=== PATIENT | female | born 1940 | race Caucasian/White ===

== ENCOUNTER 2016-12-10 19:06 | Inpatient (IN) | payer OTHER, MEDICARE, BC ==
[~2016-12-10] VITALS: Ht 154.9 cm; Wt 74.0 kg
[2016-12-10 19:16] VITALS: BP 134/63; PULSE 92; RESP 18; TEMP 98.3; O2SAT 97
[2016-12-10 19:32] VITALS: BP 134/63; PULSE 83; RESP 19; O2SAT 96
[2016-12-10] MEDS ORDERED: PROG1CAP20 PO (19:34)
[2016-12-10] MEDS ORDERED: PROG100C PO (19:34)
[2016-12-10] MEDS ORDERED: ESTR0.5T PO (19:34)
[2016-12-10] MEDS ORDERED: DICL1CAP3 PO (19:35)
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
[2016-12-10] MEDS ORDERED: MISCELLANEOUS NURSING INFORMATION XX SCH (20:30)
[2016-12-10] MEDS ORDERED: CHLORHEXIDINE GLUCONATE 2 % 1 PACK (2 CLOTHS) TOP PRN (20:30)
[2016-12-10] MEDS ORDERED: SODIUM CHLORIDE 0.9% FLUSH 10 ML FLUSH IV FLUSH PRN (20:30)
[2016-12-10] MEDS ORDERED: MAGNESIUM HYDROXIDE SUSP 30 ML CUP PO PRN (20:30)
[2016-12-10] MEDS ORDERED: ENALAPRILAT 1.25 MG/ML VIAL IV PRN (21:00)
[2016-12-10] MEDS: DOCUSATE SODIUM 100 MG CAP PO SCH ×2 (21:00→21:21)
[2016-12-10] MEDS ORDERED: ACETAMINOPHEN/HYDROcodone 325 MG/5 MG TAB PO PRN (21:00)
[2016-12-10] MEDS: SODIUM CHLOR 0.9% 1000 ML INJ 1,000 ML IV SCH (21:20)
[2016-12-10] MEDS: PANTOPRAZOLE SODIUM 40 MG VIAL IVP SCH (21:21)
[2016-12-10] MEDS: ACETAMINOPHEN/HYDROcodone 325 MG/5 MG TAB PO PRN (21:22)
[2016-12-10 21:41] LABS: AUTOMATED NEUTROPHIL # 9.3 TH/MM3 (1.8-7.7); BASOPHIL % 0.2 % (0.0-2.0); EOSINOPHIL % 0.1 % (0.0-4.0); HEMATOCRIT 32.1 % (35.0-46.0); HEMO FLAGS DIFF FINAL; LYMPH % 6.9 % (9.0-44.0); LYMPHOCYTE # 0.7 TH/MM3 (1.0-4.8); MEAN CELL VOLUME 85.1 FL (80.0-100.0); MEAN CORPUSCULAR HEMOGLOBIN 28.8 PG (27.0-34.0); MEAN CORPUSCULAR HGB CONC 33.9 % (32.0-36.0); MONO % 4.9 % (0.0-8.0); NEUT % 87.9 % (16.0-70.0); PLATELET COUNT 230 TH/MM3 (150-450); RED BLOOD COUNT 3.78 MIL/MM3 (4.00-5.30); RED CELL DISTRIBUTION WIDTH 14.3 % (11.6-17.2); WHITE BLOOD COUNT 10.6 TH/MM3 (4.0-11.0)
[2016-12-10 21:45] VITALS: BP 156/70; PULSE 88; RESP 20; TEMP 98.3; O2SAT 100
[2016-12-10 22:00] VITALS: PULSE 86
[2016-12-10 23:10] VITALS: O2SAT 97
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
[2016-12-11] VITALS (10 sets, daily range): BP systolic 113–139; BP diastolic 58–63; PULSE 77–92; RESP 12–20; TEMP 97.2–98.8; O2SAT 94–100
[2016-12-11] MEDS: ACETAMINOPHEN/HYDROcodone 325 MG/5 MG TAB PO PRN ×6 (02:12→23:10)
[2016-12-11] MEDS: CHLORHEXIDINE GLUCONATE 2 % 1 PACK (2 CLOTHS) TOP SCH (03:28)
[2016-12-11 04:32] LABS: BASOPHIL % 0.4 % (0.0-2.0); EOSINOPHIL % 0.5 % (0.0-4.0); HEMATOCRIT 30.3 % (35.0-46.0); HEMO FLAGS DIFF FINAL; LYMPH % 16.5 % (9.0-44.0); LYMPHOCYTE # 1.1 TH/MM3 (1.0-4.8); MEAN CELL VOLUME 85.6 FL (80.0-100.0); MEAN CORPUSCULAR HGB CONC 32.7 % (32.0-36.0); MONO % 8.5 % (0.0-8.0); NEUT % 74.1 % (16.0-70.0); PLATELET COUNT 211 TH/MM3 (150-450); RED BLOOD COUNT 3.54 MIL/MM3 (4.00-5.30); RED CELL DISTRIBUTION WIDTH 14.2 % (11.6-17.2); WHITE BLOOD COUNT 6.8 TH/MM3 (4.0-11.0)
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
[2016-12-11 05:17] LABS: BICARBONATE 23.9 MEQ/L (21.0-32.0); CALCIUM-PROTEIN CORRECTED 8.4 MG/DL (8.5-10.1); POTASSIUM 3.9 MEQ/L (3.5-5.1); TOTAL BILIRUBIN ADULT 0.7 MG/DL (0.2-1.0)
--- NOTE | 2016-12-11 05:56 | RADRPT ---
EXAM DATE/TIME: 12/11/2016 04:22 [facility] COMPARISON: No previous studies available for comparison. INDICATIONS : Pelvic pain. MEDICAL HISTORY : None. SURGICAL HISTORY : None. ENCOUNTER: Initial ACUITY: 1 day PAIN SCORE: Non-responsive. LOCATION: Bilateral pelvis FINDINGS: A single frontal view of the pelvis demonstrates no evidence of fracture. The bony pelvic ring is in tact. Bony mineralization is normal. The soft tissues are intact. There are degenerative changes in volving the lower lumbar spine. There is good alignment SI joints pubic symphysis. Mild degenerative changes of both hip joints. CONCLUSION: 1. No acute fracture or joint dislocation 2. Primary degenerative changes of the lower lumbar spine and pelvis. Randall Suarez MD on December 11, 2016 at 5:53 Board Certified Radiologist. This report was verified electronically.
--- NOTE | 2016-12-11 06:02 | RADRPT ---
EXAM DATE/TIME: 12/11/2016 04:20 [facility] COMPARISON: No previous studies available for comparison. INDICATIONS : Shortness of breath. MEDICAL HISTORY : Myocardial infarction. SURGICAL HISTORY : None. ENCOUNTER: Initial ACUITY: 1 day PAIN SCORE: Non-responsive. LOCATION: Bilateral chest FINDINGS: A single view of the chest demonstrates patchy infiltrates in both lung bases suggestive of atelectas is. The upper lung johnson are grossly clear.. The cardiomediastinal contours are unremarkable. Osse ous structures are intact. CONCLUSION: Patchy bibasilar infiltrates. Randall Suarez MD on December 11, 2016 at 5:59 Board Certified Radiologist. This report was verified electronically.
[2016-12-11] MEDS: SODIUM CHLOR 0.9% 1000 ML INJ 1,000 ML IV SCH ×2 (07:00→17:20)
[2016-12-11] MEDS ORDERED: REMOVE OLD LIDOCAINE PATCH T-DERMAL SCH (07:45)
[2016-12-11] MEDS: DOCUSATE SODIUM 50 MG/SENNA 8.6 MG TAB PO SCH ×2 (08:09→19:33)
[2016-12-11] MEDS: POLYETHYLENE GLYCOL 17 GM PKG PO SCH (08:09)
[2016-12-11] MEDS: METHOCARBAMOL 500 MG TAB PO SCH ×3 (09:14→22:00)
[2016-12-11] MEDS: ACETAMINOPHEN 1000 MG/100 ML VIAL IV SCH ×3 (09:14→19:38)
[2016-12-11] MEDS: LIDOCAINE HCL 5% PATCH T-DERMAL SCH (11:18)
[2016-12-11] MEDS: PANTOPRAZOLE SODIUM 40 MG VIAL IVP SCH (19:28)
[2016-12-11] MEDS: LACTULOSE SYRUP 20 GM/30 ML CUP PO SCH (19:34)
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
[2016-12-11] MEDS: REMOVE OLD LIDOCAINE PATCH T-DERMAL SCH (21:00)
[2016-12-11] MEDS: ONDANSETRON HCL 4 MG/2 ML VIAL IV PRN (23:14)
[2016-12-12] VITALS (8 sets, daily range): BP systolic 129–176; BP diastolic 70–86; PULSE 80–105; RESP 18–20; TEMP 96.7–100; O2SAT 91–99
[2016-12-12] MEDS: CHLORHEXIDINE GLUCONATE 2 % 1 PACK (2 CLOTHS) TOP SCH (03:49)
[2016-12-12] MEDS: SODIUM CHLOR 0.9% 1000 ML INJ 1,000 ML IV SCH ×3 (03:49→21:54)
[2016-12-12] MEDS: ACETAMINOPHEN 1000 MG/100 ML VIAL IV SCH (03:49)
[2016-12-12] MEDS: METHOCARBAMOL 500 MG TAB PO SCH ×3 (05:55→21:50)
[2016-12-12] MEDS: DOCUSATE SODIUM 50 MG/SENNA 8.6 MG TAB PO SCH ×2 (09:05→21:51)
[2016-12-12] MEDS: POLYETHYLENE GLYCOL 17 GM PKG PO SCH (09:06)
[2016-12-12] MEDS: LIDOCAINE HCL 5% PATCH T-DERMAL SCH (09:09)
[2016-12-12] MEDS: LACTULOSE SYRUP 20 GM/30 ML CUP PO SCH (09:09)
[2016-12-12 10:02] LABS: AUTOMATED NEUTROPHIL # 5.8 TH/MM3 (1.8-7.7); BASOPHIL # 0.1 TH/MM3 (0-0.2); BASOPHIL % 0.7 % (0.0-2.0); EOSINOPHIL % 0.2 % (0.0-4.0); HEMO FLAGS DIFF FINAL; LYMPHOCYTE # 0.9 TH/MM3 (1.0-4.8); MEAN CELL VOLUME 87.3 FL (80.0-100.0); MEAN CORPUSCULAR HEMOGLOBIN 27.9 PG (27.0-34.0); NEUT % 81.1 % (16.0-70.0); PLATELET COUNT 197 TH/MM3 (150-450); RED BLOOD COUNT 3.56 MIL/MM3 (4.00-5.30); RED CELL DISTRIBUTION WIDTH 14.4 % (11.6-17.2); WHITE BLOOD COUNT 7.2 TH/MM3 (4.0-11.0)
[2016-12-12 10:38] LABS: ALKALINE PHOSPHATASE 40 U/L (45-117); ALT (GPT) 39 U/L (10-53); ANION GAP 8 MEQ/L (5-15); AST (GOT) 67 U/L (15-37); BICARBONATE 20.9 MEQ/L (21.0-32.0); BLOOD UREA NITROGEN 11 MG/DL (7-18); CHLORIDE 111 MEQ/L (98-107); GLOMERULAR FILTRATION RATE 109 ML/MIN (>89); POTASSIUM 4.1 MEQ/L (3.5-5.1); SODIUM (NA) 140 MEQ/L (136-145); TOTAL BILIRUBIN ADULT 0.4 MG/DL (0.2-1.0)
[2016-12-12] MEDS ORDERED: IOHEXOL 350 MG/ML 10 ML VIAL (for RAD DIAG) IV ONE (10:42)
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
[2016-12-12] MEDS: ONDANSETRON HCL 4 MG/2 ML VIAL IV PRN (13:01)
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
[2016-12-12] MEDS: ACETAMINOPHEN/HYDROcodone 325 MG/5 MG TAB PO PRN ×2 (13:46→18:46)
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
[2016-12-12] MEDS ORDERED: MELATONIN 5 MG TAB PO PRN (16:00)
[2016-12-12] MEDS ORDERED: ACETAMINOPHEN 650 MG/20.3 ML UDC PO PRN (16:00)
[2016-12-12] MEDS ORDERED: ACETAMINOPHEN 1000 MG/100 ML VIAL IV PRN (16:00)
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
[2016-12-12] MEDS: REMOVE OLD LIDOCAINE PATCH T-DERMAL SCH (21:00)
[2016-12-12] MEDS: FAMOTIDINE 20 MG TAB PO SCH (21:50)
[2016-12-13] VITALS (7 sets, daily range): BP systolic 105–170; BP diastolic 52–87; PULSE 95–101; RESP 18–20; TEMP 96.6–98.5; O2SAT 90–96
[2016-12-13] MEDS: CHLORHEXIDINE GLUCONATE 2 % 1 PACK (2 CLOTHS) TOP SCH (03:55)
[2016-12-13] MEDS: METHOCARBAMOL 500 MG TAB PO SCH ×3 (05:10→20:44)
[2016-12-13 07:13] LABS: MEAN CORPUSCULAR HEMOGLOBIN 28.1 PG (27.0-34.0); MEAN CORPUSCULAR HGB CONC 32.6 % (32.0-36.0); PLATELET COUNT 232 TH/MM3 (150-450); RED BLOOD COUNT 3.48 MIL/MM3 (4.00-5.30); RED CELL DISTRIBUTION WIDTH 14.3 % (11.6-17.2); REVIEW FLAG FINAL; WHITE BLOOD COUNT 8.4 TH/MM3 (4.0-11.0)
[2016-12-13 07:50] LABS: BICARBONATE 19.2 MEQ/L (21.0-32.0); POTASSIUM 3.6 MEQ/L (3.5-5.1)
[2016-12-13] MEDS: MORPHINE SULFATE 4 MG/ML INJ IV PRN ×2 (08:25→17:57)
[2016-12-13] MEDS: DOCUSATE SODIUM 50 MG/SENNA 8.6 MG TAB PO SCH ×2 (08:27→20:44)
[2016-12-13] MEDS: POLYETHYLENE GLYCOL 17 GM PKG PO SCH (08:27)
[2016-12-13] MEDS: LACTULOSE SYRUP 20 GM/30 ML CUP PO SCH (08:27)
[2016-12-13] MEDS: LIDOCAINE HCL 5% PATCH T-DERMAL SCH (08:28)
[2016-12-13] MEDS: SODIUM CHLOR 0.9% 1000 ML INJ 1,000 ML IV SCH (08:28)
[2016-12-13] MEDS: FAMOTIDINE 20 MG TAB PO SCH ×2 (08:28→20:44)
[2016-12-13] MEDS: ACETAMINOPHEN/HYDROcodone 325 MG/5 MG TAB PO PRN ×4 (09:44→22:59)
[2016-12-13] MEDS ORDERED: ESTR1TAB PO (11:37)
--- NOTE | 2016-12-13 13:15 | HHI.PR ---
Subjective Subjective Notes OOB to chair today Patient requesting to keep Land catheter one more day + BM Objective Vitals/I&O Vital Signs Date Time Temp Pulse Resp B/P Pulse Ox O2 Delivery O2 Flow Rate FiO2 12/13/16 08:00 98.5 101 20 170/79 90 12/12/16 20:00 Nasal Cannula 2.00 12/11/16 19:00 21 Labs Laboratory Tests Test 12/13/16 06:25 White Blood Count 8.4 Red Blood Count 3.48 Hemoglobin 9.8 Hematocrit 30.0 Mean Corpuscular Volume 86.0 Mean Corpuscular Hemoglobin 28.1 Mean Corpuscular Hemoglobin 32.6 Concent Red Cell Distribution Width 14.3 Platelet Count 232 Mean Platelet Volume 9.1 Sodium Level 140 Potassium Level 3.6 Chloride Level 109 Carbon Dioxide Level 19.2 Anion Gap 12 Blood Urea Nitrogen 6 Creatinine 0.39 Estimat Glomerular Filtration 159 Rate Random Glucose 100 Calcium Level 7.9 Radiology Last Impressions Chest CT 12/12/16 0600 Signed Impressions: Service Date/Time: Monday, December 12, 2016 10:30 - CONCLUSION: 1. Patchy areas of consolidation in both lower lobes. 2. Small bilateral pleural effusions right slightly greater than left. 3. Multiple subtle bilateral rib fractures with no evidence of pneumothorax. Medhat Negron MD Abdomen/Pelvis CT 12/12/16 0600 Signed Impressions: Service Date/Time: Monday, December 12, 2016 10:30 - CONCLUSION: 1. Moderate to large hematoma in the anterior left side of the pelvis with adjacent fractures of the left pubic rami. 2. Subtle bilateral rib fractures again noted with small effusions and mild consolidation in the posterior lung bases. 3. Small simple appearing cyst in the right adnexa. Medhat Negron MD Cervical Spine MRI 12/12/16 0000 Signed Impressions: Service Date/Time: Monday, December 12, 2016 12:18 - CONCLUSION: 1. Radiographically significant spinal stenosis from C3 to C6 as described above. 2. Controlled flexion and extension films may be of benefit to exclude instability. Sukhwinder Tompkins MD FACR Pelvis X-Ray 12/11/16 0000 Signed Impressions: Service Date/Time: Sunday, December 11, 2016 04:22 - CONCLUSION: 1. No acute fracture or joint dislocation 2. Primary degenerative changes of the lower lumbar spine and pelvis. Randall Suarez MD Chest X-Ray 12/11/16 0000 Signed Impressions: Service Date/Time: Sunday, December 11, 2016 04:20 - CONCLUSION: Patchy bibasilar infiltrates. Randall Suarez MD Narrative Exam GENERAL: 76 year old well-nourished, well-developed female OOB on bedside commode. SKIN: Warm and dry. HEAD: Normocephalic. ENT: No nasal bleeding or discharge. Mucous membranes pink and moist. NECK: Trachea midline. No JVD. CARDIOVASCULAR: Regular rate and rhythm. RESPIRATORY: No accessory muscle use. Clear and diminished to auscultation. Breath sounds equal bilaterally. GASTROINTESTINAL: Abdomen soft, nondistended, painful upon palpation of LLQ and RLQ. No guarding. MUSCULOSKELETAL: Extremities without clubbing, cyanosis, or edema. No obvious deformities. NEUROLOGICAL: Awake and alert. Normal speech. A/P Assessment and Plan INJURIES: LEFT pubic rami fx w/ intrapelvic hematoma (non-op) BILAT lung contusions? PMHx: Rectal prolapse (severe) Diet: Regular, poor appetite. Added Ensure with meals Pulmonary: IS, encourage patient use Pain: Tylenol, [place] 1-2 tabs, IV Morphine, Robaxin, IV Ofirmev PRN, Lidoderm patch Activity: OOB. (WBAT) PT and OT evaluating. GI: IV Protonix Bowel: Lacy-colace, Miralax. Lactulose. + BM. DVT: SCDs. Hgb stable on today's labs. Continue to monitor. Discontinue Land catheter in AM CT abdomen pelvis with large pelvic hematoma, slightly larger. Trending Hgbs. CT chest with small bilateral effusions and bilateral consolidation. Aggressive pulmonary toileting. Oxygen. Neurosurgery following. Case management consulted to assist with discharge planning. Patient will likely need rehab placement. Prefers [facility] SNF. Attending Statement Keep land for Is and Os patient seen at bedside snf planning Attestation The exam, history, and the medical decision-making described in the above note were completed with the assistance of the mid-level provider. I reviewed and agree with the findings presented. I attest that I had a [id number] encounter with the patient on the same day, and personally performed and documented my assessment and findings in the medical record. Deangelo Capps Dec 13, 2016 13:15 Anoop Madison MD December 25, 2016 13:36
[2016-12-13] MEDS: REMOVE OLD LIDOCAINE PATCH T-DERMAL SCH (20:45)
[2016-12-14 00:15] VITALS: BP 110/54; PULSE 80; RESP 19; TEMP 97.9; O2SAT 95
[2016-12-14] MEDS: MORPHINE SULFATE 4 MG/ML INJ IV PRN ×2 (03:20→08:37)
[2016-12-14] MEDS: CHLORHEXIDINE GLUCONATE 2 % 1 PACK (2 CLOTHS) TOP SCH (04:00)
[2016-12-14] MEDS: METHOCARBAMOL 500 MG TAB PO SCH ×2 (06:00→13:02)
[2016-12-14 06:45] VITALS: BP 140/69; PULSE 100; RESP 17; TEMP 98.2; O2SAT 95
[2016-12-14 07:42] LABS: HEMATOCRIT 29.2 % (35.0-46.0); REVIEW FLAG FINAL
[2016-12-14] MEDS: ACETAMINOPHEN/HYDROcodone 325 MG/5 MG TAB PO PRN ×2 (08:06→13:50)
[2016-12-14] MEDS: FAMOTIDINE 20 MG TAB PO SCH (08:06)
[2016-12-14] MEDS: POLYETHYLENE GLYCOL 17 GM PKG PO SCH (08:10)
[2016-12-14] MEDS: DOCUSATE SODIUM 50 MG/SENNA 8.6 MG TAB PO SCH (08:10)
[2016-12-14] MEDS: LIDOCAINE HCL 5% PATCH T-DERMAL SCH (08:13)
[2016-12-14] MEDS: LACTULOSE SYRUP 20 GM/30 ML CUP PO SCH (08:14)
[2016-12-14 09:11] VITALS: BP 156/73; PULSE 103; RESP 18; TEMP 97.2; O2SAT 95
[2016-12-14 11:49] LABS: BACTERIA, URINE OCC /hpf; BLOOD, URINE MOD (NEG); COMMENT (UR) CATH-CULTURE IND; CULTURE IF INDICATED CATH CULTURE IND; GLUCOSE,URINE NEG (NEG); KETONE, URINE 40 mg/dL (NEG); MUCUS URINE FEW /lpf (OCC); NITRITE,URINE NEG (NEG); PH, URINE 5.5 (5.0-8.5); URINE COLOR YELLOW (YELLW/STRAW)
[2016-12-14] MEDS ORDERED: METH500T3 PO (11:56)
[2016-12-14] MEDS ORDERED: LIDO5DIS35 T-DERMAL (11:56)
[2016-12-14] MEDS ORDERED: HYDR-3516 PO (11:56)
[2016-12-14] MEDS ORDERED: Acetaminophen 650 Mg/20 Ml Liq PO (11:56)
[2016-12-14] MEDS ORDERED: POLY17S PO (11:56)
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
[2016-12-14] MEDS ORDERED: BACT800T5 PO (12:37)
[2016-12-14] MEDS ORDERED: CIPR250T52 PO (12:44)
[2016-12-14 12:49] VITALS: BP 132/70; PULSE 102; RESP 18; TEMP 98.1; O2SAT 95
[2016-12-14] MEDS ORDERED: CIPROFLOXACIN 250 MG TAB PO SCH (13:00)
[2016-12-14 14:00] VITALS: O2SAT 97
== END 2016-12-14 15:42 | DRG 964 ==
LOC: NEPE 19:06 → NEDA 19:37 → N03B 21:39 → N05A 12-11 17:09
PROVIDERS: ADMIT Surgery; ATTEND Surgery
DX: S32.592A Other specified fracture of left pubis, initial encounter for closed fracture (principal); S22.43XA Multiple fractures of ribs, bilateral, initial encounter for closed fracture; S27.322A Contusion of lung, bilateral, initial encounter; V43.61XA Car passenger injured in collision with sport utility vehicle in traffic accident, initial encounter; Y92.410 Unspecified street and highway as the place of occurrence of the external cause; Y99.9 Unspecified external cause status; M43.12 Spondylolisthesis, cervical region; I25.2 Old myocardial infarction; Z88.2 Allergy status to sulfonamides; Z87.891 Personal history of nicotine dependence; M25.78 Osteophyte, vertebrae; M40.202 Unspecified kyphosis, cervical region
CPT/HCPCS: 71010; 71260; 72141; 72170; 74177; 80048; 80053; 81001; 85014; 85018; 85025; 85027; 87077; 87086; 87186; 87641; 94150; C9113; J0131; J2270; J2405; J7030; L0120; L0150; L0172; Q9967